=== PATIENT | male | born 1985 | race African-American/Black ===

== ENCOUNTER 2017-03-18 22:39 | Emergency (ER) | payer OTHER ==
[~2017-03-18] VITALS: Ht 167.6 cm; Wt 74.8 kg
--- NOTE | ~2017-03-18 | EKG ---
[address] [address] [facility] [place] [address] ELECTROCARDIOGRAM REPORT Name: REYNA MENDOZA [id number] Admission: 03/18/17 Attend Phys: Discharge: 03/19/17 Date of : 87 Report #: [id number] THIS REPORT FOR: //name// [facility] ED Test Date: 2017-03-18 Test Time: 23:12:06 Pat Name: REYNA MENDOZA Department: Room: Gender: Digital Analyst: [facility] : 1985 Requested By: Parker Acosta Order Number: [id number] MD: Jersey Chow Measurements Intervals [place] Rate: 71 P: 66 TN: 130 QRS: 52 QRSD: 82 T: 19 QT: 380 QTc: 413 Interpretive Statements Sinus rhythm with sinus arrhythmia ST elev, probable normal early repol pattern Baseline wander in lead(s) I,II,aVR No previous ECG available for comparison Electronically Signed On 03-19-2017 10:53:00 CDT by Jersey Chow [email or web address] <ELECTRONICALLY SIGNED> By: Jersey Chow MD, [facility] 03/19/17 1053 11 11 Jersey Chow MD, [facility] /EPI
[2017-03-18 23:57] LABS: HEMATOCRIT 49.5 % (42.0-52.0); HEMOGLOBIN 15.7 gm/dL (14.0-18.0); MCHC 31.7 g/dL (28.0-37.0); MCV 72.6 fL (80.0-100.0); RBC 6.82 mil/uL (4.50-6.00); RDW 14.6 % (10.5-14.5); WBC 7.4 thou/uL (4.0-11.0)
[2017-03-19 00:05] LABS: ANION GAP 10 mmol/L (7-16); BUN 13 mg/dL (7-18); CALCIUM 8.8 mg/dL (8.5-10.1); CHLORIDE 102 mmol/L (98-107); CO2 28 mmol/L (21-32); CREATININE 1.2 mg/dL (0.7-1.3); GLUCOSE 95 mg/dL (74-106); POTASSIUM 3.8 mmol/L (3.5-5.1); SODIUM 140 mmol/L (136-145)
[2017-03-19 00:13] LABS: ALBUMIN 4.3 g/dL (3.4-5.0); ALKALINE PHOSPHATASE 79 U/L (46-116); SGOT 32 U/L (15-37); SGPT 60 U/L (30-65); TOTAL BILIRUBIN 0.5 mg/dL (<0.1-1.0); TOTAL PROTEIN 7.9 g/dL (6.4-8.2); TROPONIN-I < 0.04 ng/mL (<0.04-0.07)
[2017-03-19] MEDS ORDERED: NAPROSYN500 MG PO (02:09)
[2017-03-19] MEDS ORDERED: ROBAXIN500 MG PO (02:09)
[2017-03-19 02:16] VITALS: BP 136/73
== END 2017-03-19 02:17 | disposition home or self-care (01) ==
LOC: ER 22:39
PROVIDERS: Emergency Medicine
DX: R07.89 Other chest pain (principal); M62.830 Muscle spasm of back; F10.99 Alcohol use, unspecified with unspecified alcohol-induced disorder; Z95.4 Presence of other heart-valve replacement